=== PATIENT | male | born 1980 | race Caucasian/White ===

== ENCOUNTER 2018-05-10 05:46 | Emergency (ER) | payer OTHER ==
[~2018-05-10] VITALS: Ht 193 cm; Wt 113.4 kg
[2018-05-10] MEDS ORDERED: CYCL10 PO (06:07)
[2018-05-10] MEDS ORDERED: Norco 10-325 T1 EACH PO (06:07)
[2018-05-10] MEDS ORDERED: Prednisone20 MG PO (06:07)
== END 2018-05-10 06:21 | disposition home or self-care (01) ==
LOC: ER 05:46
DX: G57.01 Lesion of sciatic nerve, right lower limb (principal); F17.200 Nicotine dependence, unspecified, uncomplicated
CPT/HCPCS: 99282